=== PATIENT | female | born 1985 | race African-American/Black ===

== ENCOUNTER 2017-07-04 21:46 | Emergency (ER) | payer SELFPAY ==
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
[2017-07-04] MEDS: ONDANSETRON HCL/PF 4 MG/ 2ML VIAL IVP ONE (22:40)
[2017-07-04] MEDS: 0.9 % SODIUM CHLORIDE 1,000 ML IV ONE (22:40)
[2017-07-04] MEDS: KETOROLAC TROMETHAMINE 30 MG/1ML VIAL IVP ONE (23:15)
[2017-07-04 23:18] LABS: eGFR (African) > 60; eGFR (Non-African) > 60
[2017-07-04 23:21] LABS: BASOPHILS % 0.3 (0.0-1.5); EOSINOPHILS % 1.1 % (0.0-6.8); MEAN CORPUSCULAR HEMOGLOBIN 25.5 pg (28.0-34.0); MEAN CORPUSCULAR VOLUME 81.6 fl (80.0-100.0); MONOCYTES % 3.9 % (0.0-11.0); NEUTROPHILS # 5.9 # k/uL (1.4-7.7)
[2017-07-04] MEDS: KETOROLAC TROMETHAMINE 30 MG/1ML VIAL ONE (23:23)
[2017-07-04 23:39] LABS: APPEARANCE,URINE CLEAR (CLEAR); COLOR,URINE YELLOW (YELLOW); OCCULT BLOOD,URINE 3+ (NEGATIVE); UROBILINOGEN URINE 0.2 Eu (0.2-1.0)
[2017-07-04 23:54] VITALS: BP 126/68
== END 2017-07-04 23:45 | disposition home or self-care (01) ==
LOC: ED 21:46
DX: J09.X2 Influenza due to identified novel influenza A virus with other respiratory manifestations (principal); E86.0 Dehydration
CPT/HCPCS: 80053; 81002; 85025; 87400; 96360; 96374; 96375; 99283; 99284; J1885; J2405; J7030; S1016